=== PATIENT | male | born 1985 | race Two or more races ===

== ENCOUNTER 2021-11-07 13:46 | Emergency (ER) | payer MEDICAID, OTHER ==
[~2021-11-07] VITALS: Ht 165.1 cm; Wt 67.7 kg
[2021-11-07 14:11] VITALS: BP 136/86
== END 2021-11-07 20:59 | disposition left against medical advice (07) ==
LOC: ER 13:46
DX: M79.641 Pain in right hand (principal); Z53.21 Procedure and treatment not carried out due to patient leaving prior to being seen by health care provider; W22.01XA Walked into wall, initial encounter; Y93.89 Activity, other specified; Y92.89 Other specified places as the place of occurrence of the external cause; Y99.8 Other external cause status
CPT/HCPCS: 73110; 73130